=== PATIENT | male | born 1995 | race Caucasian/White ===

== ENCOUNTER 2022-09-04 01:58 | Emergency (ER) | payer SELFPAY ==
[~2022-09-04] VITALS: Ht 177.8 cm; Wt 95.5 kg
[~2022-09-04 01:58] MED LIST: BACTRIM DS 8001 TAB PO; NO HOME MEDICATIONS
[2022-09-04 02:20] VITALS: TEMP 100.4
[2022-09-04 03:03] LABS: HEMATOCRIT 43.8 % (42.0-52.0); HEMOGLOBIN 15.3 g/dl (13.5-18.0); MEAN CELL VOLUME 89 fl (80.0-100.0); MEAN CORPUSCULAR HEMOGLOBIN 31 pg (27-31); MEAN CORPUSCULAR HGB CONC 35 g/dl (33.0-37.0); MEAN PLATELET VOLUME 9.6 fl (7.4-10.4); PLATELET COUNT 282 K/mm3 (130-400); RED BLOOD COUNT 4.95 M/mm3 (4.20-5.60); REDCELL DISTRIBUTION WIDTH-CV 11.8 % (11.5-14.5)
[2022-09-04 03:20] LABS: BILIRUBIN,TOTAL 1.1 mg/dL (0.2-1.2); CALCIUM 8.8 mg/dL (8.4-10.2); CREATININE, serum 1.03 mg/dL (0.72-1.25); POTASSIUM 3.9 mmol/L (3.5-4.5); TOTAL PROTEIN 6.6 gm/dL (6.2-8.1)
[2022-09-04 03:28] LABS: BAND 4 % (0-10); LYMPHOCYTE 6 % (20.0-51.0); NEUTROPHILS 88 % (42.0-75.2); PLATELET ESTIMATE NORMAL (NORMAL)
[2022-09-04] MEDS ORDERED: ZOFRAN ODT4 MG PO (04:25)
[2022-09-04 04:36] VITALS: BP 133/72; PULSE 80
== END 2022-09-04 04:36 | disposition home or self-care (01) ==
LOC: COL.ER 01:58
PROVIDERS: Personal Emergency Response Attendant
DX: R11.10 Vomiting, unspecified (principal); R19.7 Diarrhea, unspecified; D72.829 Elevated white blood cell count, unspecified; R79.89 Other specified abnormal findings of blood chemistry; R74.01 Elevation of levels of liver transaminase levels
CPT/HCPCS: J7030